=== PATIENT | female | born 1980 | race Asian ===

== ENCOUNTER 2017-04-27 21:03 | Emergency (ER) | payer BC ==
[~2017-04-27] VITALS: Ht 162.6 cm; Wt 68.0 kg
--- NOTE | 2017-04-27 21:33 | NUR ---
PT CAME FROM HOME C/O INTERMITANT CHEST TIGHTENING/PAIN AT REST, BREATHIGN EVEN/UNLABORED, SKIN WARM/DRY, DISTAL PULSES INTACT, NOT CURRENTLY IN PAIN,
[2017-04-27 21:37] LABS: BASOPHILS # (AUTO) 0.1 /CMM (0.0-0.2); BASOPHILS % (AUTO) 0.8 % (0.0-2.0); EOSINOPHILS # (AUTO) 0.1 /CMM (0.0-0.7); HEMATOCRIT 43 % (33-45); HEMOGLOBIN 14.3 g/dL (11.5-14.8); LYMPHOCYTES # (AUTO) 1.9 /CMM (0.8-4.8); LYMPHOCYTES % (AUTO) 19.7 % (20.0-44.0); MEAN CORPUSCULAR HEMOGLOBIN 29 PG (26.0-33.0); MEAN CORPUSCULAR HGB CONC 34 g/dl (31.0-36.0); MEAN CORPUSCULAR VOLUME 87 fL (82-100); MONOCYTES # (AUTO) 0.6 /CMM (0.1-1.30); MONOCYTES % (AUTO) 6.7 % (2.0-12.0); NEUTROPHILS # (AUTO) 6.8 /CMM (1.8-8.9); NEUTROPHILS % (AUTO) 71.8 % (43.0-81.0); PLATELET COUNT (AUTO) 287 /CMM (150-450); RDW COEFFICIENT OF VARIATION 12.9 (11.5-15.0); RED BLOOD CELL COUNT(AUTO) 4.89 MIL/uL (4.0-5.2); WHITE BLOOD COUNT (AUTO) 9.5 K/uL (4.3-11.0)
[2017-04-27 21:48] LABS: CARBON DIOXIDE 26 mmol/L (21-32); CHLORIDE 102 mmol/L (98-107); CREATININE 0.7 mg/dL (0.6-1.3); GLUCOSE 133 mg/dL (74-106); POTASSIUM 3.2 mmol/L (3.5-5.1); SODIUM SERUM 138 mmol/L (136-145); UREA NITROGEN, BLOOD 12 mg/dL (7-18)
[2017-04-27 21:55] LABS: TROPONIN I < 0.017 ng/mL (0.00-0.056)
[2017-04-27 21:58] LABS: CALCIUM, SERUM 8.9 mg/dL (8.5-10.1)
[2017-04-27 22:52] VITALS: BP 113/84
== END 2017-04-27 22:53 | disposition home or self-care (01) ==
LOC: ER 21:03
DX: K29.70 Gastritis, unspecified, without bleeding (principal); R07.89 Other chest pain; Z88.0 Allergy status to penicillin
CPT/HCPCS: 36415; 71010; 80048; 84484; 85025; 93005; 99285; A4606; Z7610

== ENCOUNTER 2018-01-06 01:59 | Emergency (ER) | payer BC ==
[~2018-01-06] VITALS: Ht 162.6 cm; Wt 68.0 kg
[2018-01-06 02:02] VITALS: BP 141/93
[2018-01-06] MEDS ORDERED: MAG HYDROX/AL HYDROX/SIMETH 30 ML UDC ONE (02:27)
[2018-01-06] MEDS ORDERED: FAMOTIDINE (20 MG) 20 MG TABLET ONE (02:27)
[2018-01-06] MEDS ORDERED: FAMOTIDINE (20 MG) 20 MG TABLET PO ONE (02:30)
[2018-01-06] MEDS ORDERED: MAG HYDROX/AL HYDROX/SIMETH 30 ML UDC PO ONE (02:30)
== END 2018-01-06 02:39 | disposition home or self-care (01) ==
LOC: ER 02:00
DX: R22.0 Localized swelling, mass and lump, head (principal); R07.0 Pain in throat; Z88.0 Allergy status to penicillin
CPT/HCPCS: 99283; A4606; Z7610